=== PATIENT | female | born 1935 | race Caucasian/White ===

== ENCOUNTER 2023-07-05 21:33 | Inpatient (IN) | payer MEDICARE, SELFPAY ==
[2023-07-05] VITALS (7 sets, daily range): BP systolic 108–141; BP diastolic 53–98; PULSE 78–88; RESP 16–24; TEMP 36.8; O2SAT 94–97
--- NOTE | ~2023-07-05 | XR_ITS ---
EXAMINATION: XR chest 1V portable DATE: 07/05/2023 22:16 INDICATION: Weakness. TECHNIQUE: A single frontal view of the chest was obtained. COMPARISON: None. FINDINGS: The lung volumes are small. No pneumonia, pleural effusion, or pneumothorax. The heart size is normal. Surgical clips in the right upper quadrant are likely from cholecystectomy. IMPRESSION: 1. Small lung volumes. Reviewed, dictated and finalized at location E. IMPRESSION: 1. Small lung volumes.
--- NOTE | ~2023-07-05 | XR_ITS ---
EXAMINATION: XR ERCP DATE: 07/08/2023 16:13 INDICATION: Choledocholithiasis. TECHNIQUE: 2 spot fluoroscopic images of the right upper quadrant were obtained during endoscopic ret rograde cholangiopancreatography (ERCP). Fluoroscopy exposure time was 119 seconds. COMPARISON: CT abdomen and pelvis 07/06/23 FINDINGS: The endoscope is in the second portion of the duodenum. There is contrast opacification of the common duct, which is dilated. There is a stone in the common duct. IMPRESSION: 1. Choledocholithiasis. Please refer to the ERCP procedure note for additional details. Reviewed, dictated and finalized at location A.
--- NOTE | ~2023-07-05 | CT_ITS ---
EXAMINATION: CT abdomen pelvis w con DATE: 07/06/2023 00:21 INDICATION: Transaminitis. Lethargy. TECHNIQUE: Computed tomography (CT) of the abdomen and pelvis was performed with 100 mL Omnipaque 350 intravenous contrast. Automated exposure control and iterative reconstruction technique were employe d. The dose-length product was 1181.45 mGy-cm. COMPARISON: None. FINDINGS: The visualized portions of the lung bases demonstrate mild atelectasis and mild chronic int erstitial lung disease. No pleural effusion. The heart size is normal. No pericardial effusion. There is a small sliding hiatal hernia. There is moderate intrahepatic biliary duct dilatation. The common duct is dilated to 16 mm. There are stones in the common duct measuring up to 7 mm. There are change s of cholecystectomy. The spleen, pancreas, and adrenal glands are normal. There are cysts in the kid neys measuring up to 2.5 cm on the left. There is diverticulosis of the colon without evidence of div erticulitis. The appendix is normal. There are no pathologically enlarged lymph nodes. There is no fr ee intraperitoneal fluid. There is a right inguinal hernia containing fat. There is moderate thoracic and lumbar spondylosis. IMPRESSION: 1. Choledocholithiasis with moderate intrahepatic and extrahepatic biliary duct dilatation. Reviewed, dictated and finalized at location A.
--- NOTE | ~2023-07-05 | CT_ITS ---
EXAMINATION: CT brain wo con DATE: 07/05/2023 22:35 INDICATION: Altered mental status. TECHNIQUE: Computed tomography (CT) of the head was performed without intravenous contrast. The mA wa s adjusted according to patient size. Iterative reconstruction technique was employed. The dose-lengt h product was 605.33 mGy-cm. COMPARISON: None FINDINGS: There are scattered areas of low attenuation in the cerebral white matter. There is no intr acranial hemorrhage, acute infarction, or abnormal intracranial mass lesion. The ventricles are tara l in size. There is mild mucosal thickening in the paranasal sinuses. There are likely changes of ocu lar lens replacement surgeries. The mastoid air cells are normal. IMPRESSION: 1. Moderate nonspecific cerebral white matter disease, which likely represents chronic small vessel i schemic disease. Reviewed, dictated and finalized at location E. IMPRESSION: 1. Moderate nonspecific cerebral white matter disease, which likely represents chronic small vessel ischemic disease.
--- NOTE | 2023-07-05 21:39 | ECG_ITS ---
SEE SCANNED COPY FOR CONFIRMED REPORT MTDD
--- NOTE | 2023-07-05 22:22 | ED.GENADULT ---
HPI - General Adult General Chief complaint: Weakness Stated complaint: increased weakness x 24 hours Time Seen by Provider: 07/05/23 22:07 History of Present Illness HPI narrative: 88-year-old female present to the emergency department for evaluation for increased lethargy. Patient has dementia and is nonverbal at baseline. [facility] felt the patient was less active than normal and slept in. Patient is alert and at her baseline upon arrival to the emergency department. Related Data Home Medications Medication Instructions Recorded Confirmed B12 1,000 mcg PO DAILY 07/06/23 07/06/23 Vitamin D3 1,000 units PO DAILY 07/06/23 07/06/23 atorvastatin 40 mg tablet 40 mg PO DAILY 07/06/23 07/06/23 coQ10 (ubiquinol) 200 mg PO BID 07/06/23 07/06/23 hydroxychloroquine 200 mg tablet 200 mg PO BID 07/06/23 07/06/23 pantoprazole 40 mg tablet,delayed 40 mg PO BID 07/06/23 07/06/23 release quetiapine 25 mg PO DAILY 07/06/23 07/06/23 Allergies Allergy/AdvReac Type Severity Reaction Status Date / Time No Known Allergies Allergy Verified 07/06/23 05:48 Review of Systems Review of Systems: All systems reviewed & are unremarkable except as noted in HPI and below PMFSH Past Medical History Medical History Abdominal pain Altered mental status Dementia Elevated liver enzymes Leukocytosis Surgical History Surgical History Status post cholecystectomy Family History Family History Other Unknown family medical history Social History Social History Smoking status: Unknown if ever smoked Alcohol intake: unknown Substance use: unknown Spiritual care concerns: No Exam Narrative: APPEARANCE: Well-appearing, non for HEAD: normocephalic, atraumatic. EYES: PERRLA/EOMI, conjunctivae clear. NOSE: Normal no drainage EARS:TMS clear with good light reflex. THROAT: Pharynx clear, no exudate. NECK: Supple. No adenopathy, no masses. RESPIRATORY: Airway patent, respirations nonlabored. Clear to auscultation bilaterally, no rales, rhonchi, wheezing. CARDIOVASCULAR: Regular rate and rhythm without murmurs rubs or gallops. ABDOMINAL: Soft, nontender, nondistended, normal bowel sounds MUSCULOSKELETAL: Moves all extremities. Strength/ROM intact, No edema, No calf tenderness. NEURO: Alert. Cranial nerves II through XII intact. Grossly intact SKIN: Warm, dry. Normal Color Course Vital Signs Vital signs: Vital Signs Temperature 98.2 F 07/05/23 21:33 Pulse Rate 85 07/05/23 21:33 Respiratory Rate 19 07/05/23 21:33 Blood Pressure 141/53 H 07/05/23 21:33 Pulse Oximetry 94 07/05/23 21:33 Oxygen Delivery Room Air 07/05/23 21:33 Temperature 97.7 F 07/09/23 08:45 Pulse Rate 66 07/09/23 08:45 Respiratory Rate 16 07/09/23 08:45 Blood Pressure 130/50 L 07/09/23 08:45 Pulse Oximetry 99 07/09/23 08:45 Oxygen Delivery Room Air 07/09/23 09:50 Oxygen Flow Rate 10 07/08/23 16:16 Fraction of Inspired Oxygen 21 07/08/23 20:30 Medical Decision Making [facility] Narrative Medical decision making narrative: 88-year-old female presents emergency department for evaluation for altered mental status and increased lethargy. Patient is alert at her baseline in the emergency department. Patient is afebrile but does have a leukocytosis of 11.3 with a stable hemoglobin of 13.2. Patient had elevation in T bili AST ALT and alk-phos. No previous labs to compare to. CT scan was ordered and does show biliary dilation with common bile duct measuring up to 1.6 cm with distal CBD/ampullary likely stone measuring 7-8 mm. GI was consulted and they were comfortable with the plan to consult and patient will have an MRCP ordered. Vital Signs Vital Signs: Vital Signs
[2023-07-05 22:29] LABS: Basophils Absolute Auto 0.1 K/mm3 (0.0-0.1); Basophils Percent Auto 0.4 % (0.2-1.2); Eosinophils Percent Auto 0.4 % (0-4.4); Hematocrit 40.7 % (37.0-47.0); Hemoglobin 13.2 g/dL (12.0-15.0); Immature Granulocyte Absolute 0.06 K/mm3 (0.00-0.031); Immature Granulocyte Percent A 0.5 % (0-0.5); Lymphocytes Absolute Auto 0.63 K/mm3 (0.9-3.2); Lymphocytes Percent Auto 5.6 % (18.3-44.2); Mean Corpuscular HGB Conc 32.4 g/dl (32-36); Mean Corpuscular Hemoglobin 29.7 pg (26-34); Mean Corpuscular Volume 91.5 fl (80-100); Mean Platelet Volume 10.4 fl (7.4-10.4); Monocytes Absolute Auto 1.1 K/mm3 (0.1-0.6); Monocytes Percent Auto 9.3 % (2.6-8.5); Neutrophils Absolute Auto 9.4 K/mm3 (1.3-6.7); Neutrophils Percent Auto 83.8 % (45.5-73.1); Platelet Count Result 186 k/mm3 (150-375); Red Blood Count 4.45 M/mm3 (4.2-5.4); Red Cell Distribution Width 14.1 % (11.5-14.5); White Blood Count 11.3 K/mm3 (4.5-10.0)
[2023-07-05 22:40] LABS: Alanine Aminotransferase 515 U/L (6-35); Albumin Level 4.5 g/dL (3.5-5.1); Alkaline Phosphatase 272 U/L (38-126); Anion Gap 8 mmol/L (4-12); Aspartate Amino Transferase 414 U/L (14-36); Bilirubin,Total 1.5 mg/dL (0.2-1.3); Blood Urea Nitrogen 15 mg/dL (7-17); Calcium 8.7 mg/dL (8.4-10.2); Carbon Dioxide 21 mmol/L (22-30); Chloride 106 mmol/L (98-107); Estimated CRCL calculation 48 ml/min; Estimated Glomerular Filt Rate > 60; Glucose 172 mg/dL (65-110); Lactic Acid Reflex 1.1 mmol/L (0.7-2.0); Potassium 3.8 mmol/L (3.4-5.0); Sodium 135 mmol/L (137-145)
[2023-07-05 22:48] LABS: INR 1.2; Partial Thromboplastin Time 35.6 Seconds (22.3-36.8); Prothrombin Time 15.8 Seconds (11.1-14.7)
--- NOTE | 2023-07-05 23:04 | PC.NURSE ---
patient care and report given to ELAINA Espinosa. all questions answered.
[2023-07-05 23:05] LABS: Influenza A QL RT-PCR Negative (Negative); Influenza B QL RT-PCR Negative (Negative); RSV RNA, RT-PCR Negative (Negative); SARS-CoV-2 RNA PCR Negative (Negative)
--- NOTE | 2023-07-05 23:08 | PC.NURSE ---
this rn assumed care of patient. this rn took patient report from ELAINA Woods.
[2023-07-05 23:46] LABS: Appearance Urine Cloudy (Clear); Bacteria Urine None Seen /hpf; Bilirubin Urine 1+ (Negative); Blood Urine Negative (Negative); Color Urine Dark Yellow (Yellow); Glucose Urine UA Negative (Negative); Ketones Urine Negative (Negative); Leukocyte Esterase Ur 1+ LEU/UL (Negative); Need Manual Microscopic Reviewed; Nitrate Urine Negative (Negative); Non Pathogenic Casts 0-2; Protein Urine 1+ mg/dL (Negative); Specific Grav Ur 1.026 (1.001-1.035); Squamous Epithelial Cell Urine Occasional /hpf (Few)
[2023-07-05 23:51] LABS: Add Urine Microscopic? YES
[2023-07-06] VITALS (13 sets, daily range): BP systolic 109–154; BP diastolic 58–82; PULSE 62–73; RESP 16–20; TEMP 36.1–37.2; O2SAT 92–100; BMI 35.3
--- NOTE | 2023-07-06 00:56 | PC.NURSE ---
pt refusing vital equipment at this time. pt tried to hit/slap/ spit on this rn when attempting to reapply vital equipment.
[2023-07-06] MEDS: PIPERACILLN/TAZ 3.375GM/NS50ML 3.375 GM/50 ML BAG IVPB ×3 (05:06→17:02)
--- NOTE | 2023-07-06 05:12 | PC.NURSE ---
patient began to get combative upon reinitiation of iv. pt started to kick, spit, and hit staff members. Pt continually stating, I want to go home, you can't stop me. I am going to go see my mom . This rn attempted to reorient patient to place. pt began to try to crawl out of bed. pt then started to pull on lines and yell at staff.
--- NOTE | 2023-07-06 05:50 | ADMGEN ---
This patient, Shelly Johnston, was admitted to Medical Room 244-. Patient/family oriented to hospital policies and general routines including ID bracelet, bed and alarms, visiting hours, pain management, procedures, bathroom and other care routines, personal items, smoking policy, room service/diet, and visiting hours. Information on how to activate the Rapid Response Team has been discussed. Patient/Family are encouraged to report perceived risks to care and to ask questions if they do not understand what they are told or what they should do.
[2023-07-06] MEDS: SODIUM CHLORIDE 0.9% IV 1,000 ML 125 ML IV CONT ×3 (06:00→22:35)
--- NOTE | 2023-07-06 06:25 | PC.NURSE ---
PT TRANSFERRED TO FLOOR FROM ED ON STRETCHER AND IMMEDIATELY WHEN COMING OFF THE ELEVATOR PT WAS SCREAMING AND THRASHING. PT CURSING, HITTING, KICKING, AND SPITTING AT ANYONE WHO COMES NEAR HER. IT UNCOOPERATIVE AND WILL NOT ALLOW ME TO PHYSICAL ASSESS HER. PT HAS PULLED OUT MULTIPLE IVS. STAFF WAS ABLE TO SAVE CURRENT LINE AND IT WAS WRAPPED IN [place] AND [place]. CONTACTED HOSPITALIST FOR MITT ORDER. ORDER WAS PLACED WITH A PO DOSE OF SEROQUEL. PT REFUSES AND MEDICATIONS AND SPITS AT YOU ANYTIME YOU ARE NEAR. MULTIPLE STAFF HAVE TRIED TO CALM THE PT WITH NO SUCCESS.
--- NOTE | 2023-07-06 06:29 | PC.NURSE ---
Patient is not lethargic nor nonverbal. She has been verbally aggressive with staff, spitting, scratching, and pulling out IVs.
[2023-07-06] MEDS: QUEtiapine FUMARATE 25 MG TABLET PO (06:33)
--- NOTE | 2023-07-06 06:55 | PM.IMHP ---
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 On assessment patient is lying in bed with daughter/POA at bedside. Patient becomes agitated with exam and flails her arms to shoo me away. She then begins to speak in ivorian. Per daughter this is common when patient is under going something she does not like. Daughter was able to ask patient questions such as do you have any pain, feel short of breath, weakness, nauseous, ect. All of these questions the patient responded no to. All of history was obtained from daughter. Per daughter patient is typically AOx1 at baseline, walks independently and is able to hold small conversations. She notes that patient became weak and less responsive yesterday with noticeable difficulties walking per care home staff. Discussed labs and imaging with daughter. She states understanding. GI evaluated patient who plans to perform an ERCP on Saturday. Daughter is agreeable to current treatment plan. All questions were answered at time of assessment. Home medications restarted as appropriate. Spoke with ELAINA Burnett at [facility]. She states that patient is typically AOx1 (self), walks independently, and is able to hold small conversations about how she is feeling, if she wants to do activities, or if she is in pain. She states that yesterday patient was noticeably less active/communicative which prompted them to send her to the ED. Of note this patient is known to speak fluent Japanese at times. ED workup: CBC with leukocytosis of 11.3. Chemistry with mild hyponatremia 135, glucose 172. Elevated liver panel of AST 414, ALT 515, Alk phos 272, tot bili 1.5. UA with cloudy appearance, 1+ protein, 1+ bili, 1+ leukocyte, RBC 6-10, WBC 6-10. Viral panel negative. Chest XR with small lung volumes. Head CT revealed moderate nonspecific cerebral white matter disease, which likely represents chronic small vessel ischemic disease. Abdomen/pelvis CT: Choledocholithiasis with moderate intrahepatic and extrahepatic biliary duct dilatation. Started on NS and Zosyn. GI consulted. Review of Systems Review of Systems: ROS unobtainable: Yes unobtainable due to mental status [facility] Past Medical History Medical History Abdominal pain Altered mental status Dementia Elevated liver enzymes Leukocytosis Surgical History Surgical History Status post cholecystectomy Family History Family History Other Unknown family medical history Social History Social History Smoking status: Unknown if ever smoked Alcohol intake: unknown Substance use: unknown Spiritual care concerns: No Meds Home Medications and Allergies Home Medications Medication Instructions Recorded Confirmed Type B12 1,000 mcg PO DAILY 07/06/23 07/06/23 History Vitamin D3 1,000 units PO DAILY 07/06/23 07/06/23 History atorvastatin 40 mg tablet 40 mg PO DAILY 07/06/23 07/06/23 History coQ10 (ubiquinol) 200 mg PO BID 07/06/23 07/06/23 History hydroxychloroquine 200 mg tablet 200 mg PO BID 07/06/23 07/06/23 History pantoprazole 40 mg tablet,delayed 40 mg PO BID 07/06/23 07/06/23 History release quetiapine 25 mg PO DAILY 07/06/23 07/06/23 History Allergies Allergy/AdvReac Type Severity Reaction Status Date / Time No Known Allergies Allergy Verified 07/06/23 05:48 Vital Signs Vital Signs - 24 hr 07/05/23 21:33 07/05/23 21:44
--- NOTE | 2023-07-06 14:17 | WPDGICN ---
Assessment and Plan Assessment and plan (1) Choledocholithiasis: Code(s): K80.50 - Calculus of bile duct without cholangitis or cholecystitis without obstruction Status: Acute Assessment and Plan: patient will need ERCP in order to remove stones this was explained in detail to daughter and she is agreeable we can do it on Saturday, in the meantime is ok to give liquid diet (2) Abdominal pain: Code(s): R10.9 - Unspecified abdominal pain Status: Acute (3) Elevated liver enzymes: Code(s): R74.8 - Abnormal levels of other serum enzymes Status: Acute Assessment and Plan: probably from stone in bile duct monitor (4) Leukocytosis: Code(s): D72.829 - Elevated white blood cell count, unspecified Status: Acute Assessment and Plan: on abx monitor (5) Dementia: Code(s): F03.90 - Unspecified dementia, unspecified severity, without behavioral disturbance, psychotic disturbance, mood disturbance, and anxiety Status: Acute (6) Altered mental status: Code(s): R41.82 - Altered mental status, unspecified Status: Acute GI Consult Note Consult date/time: 07/06/23 14:17 Reason for consult: abdominal pain, choledocholithiasis, elevated lft HPI: Shelly Johnston is a 88 year old female with past medical history of CVA last year then had UGIB and she has been staying since early this year at [facility]. She also has rheumatoid arthritis, hypothyroidism and many years ago cholecystectomy. History is obtained from records and daughter who is at bedside. She was sent here after altered mental status and lethargy (more than usual), at baseline she talks typically AOx1 (self), walks independently, and is able to hold small conversations about how she is feeling. Also was report about abdominal pain. ED workup: CBC with leukocytosis of 11.3. glucose 172. AST 414, ALT 515, Alk phos 272, tot bili 1.5. UA with cloudy appearance, 1+ protein, 1+ bili, 1+ leukocyte, RBC 6-10, WBC 6-10. Viral panel negative. Chest XR with small lung volumes. Head CT revealed moderate nonspecific cerebral white matter disease, which likely represents chronic small vessel ischemic disease. Abdomen/pelvis CT: Choledocholithiasis with moderate intrahepatic and extrahepatic biliary duct dilatation, started on abx. No pancreatitis. Review of Systems Constitutional: Constitutional: Denies chills Eyes: Eyes: Denies blurry vision ENT: Reports Normal hearing present Cardiovascular: Cardiovascular: Denies chest pain Respiratory: Respiratory: Denies cough Gastrointestinal: Gastrointestinal: Reports abdominal pain Musculoskeletal: Musculoskeletal: Denies arthralgias Integumentary/Breasts: Skin/Breast: Denies rash Neurologic: Reports confusion Psychiatric: Psychiatric: Reports confusion [facility] Past Medical History Medical History (Updated 07/06/23 @ 14:24 by Kendrick Campo MD) Abdominal pain Altered mental status Dementia Elevated liver enzymes Leukocytosis Family History Family History (Updated 07/06/23 @ 06:03 by Sb Sheldon RN) Other Unknown family medical history Social History Social History Smoking status: Unknown if ever smoked Alcohol intake: unknown Substance use: unknown Spiritual care concerns: No Meds Home Medications and Allergies Home Medications Medication Instructions Recorded Confirmed Type B12 1,000 mcg PO DAILY 07/06/23 07/06/23 History Vitamin D3 1,000 units PO DAILY 07/06/23 07/06/23 History atorvastatin 40 mg tablet 40 mg PO DAILY 07/06/23 07/06/23 History coQ10 (ubiquinol) 200 mg PO BID 07/06/23 07/06/23 History hydroxychloroquine 200 mg tablet 200 mg PO BID 07/06/23 07/06/23 History pantoprazole 40 mg tablet,delayed 40 mg PO BID 07/06/23 07/06/23 History release quetiapine 25 mg PO DAILY 07/06/23 07/06/23 History Allergies Allergy/AdvReac Type Severity Reaction Stat
[2023-07-06] MEDS: HYDROXYCHLOROQUINE SULFATE 200 MG TABLET PO (17:02)
[2023-07-07] MEDS: PIPERACILLN/TAZ 3.375GM/NS50ML 3.375 GM/50 ML BAG IVPB ×4 (00:07→17:05)
[2023-07-07 04:03] VITALS: BP 130/102; PULSE 81; RESP 18; TEMP 36.4; O2SAT 95
[2023-07-07 05:16] LABS: Basophils Percent Auto 0.7 % (0.2-1.2); Eosinophils Absolute Auto 0.2 K/mm3 (0-0.3); Eosinophils Percent Auto 3.3 % (0-4.4); Hematocrit 37.6 % (37.0-47.0); Hemoglobin 11.9 g/dL (12.0-15.0); Immature Granulocyte Absolute 0.01 K/mm3 (0.00-0.031); Immature Granulocyte Percent A 0.2 % (0-0.5); Lymphocytes Absolute Auto 1.19 K/mm3 (0.9-3.2); Lymphocytes Percent Auto 20.6 % (18.3-44.2); Mean Corpuscular HGB Conc 31.6 g/dl (32-36); Mean Corpuscular Volume 94.7 fl (80-100); Mean Platelet Volume 10.8 fl (7.4-10.4); Monocytes Absolute Auto 0.7 K/mm3 (0.1-0.6); Monocytes Percent Auto 11.8 % (2.6-8.5); Neutrophils Absolute Auto 3.7 K/mm3 (1.3-6.7); Neutrophils Percent Auto 63.4 % (45.5-73.1); Platelet Count Result 156 k/mm3 (150-375); Red Blood Count 3.97 M/mm3 (4.2-5.4); Red Cell Distribution Width 13.7 % (11.5-14.5); White Blood Count 5.8 K/mm3 (4.5-10.0)
[2023-07-07 06:24] LABS: Alanine Aminotransferase 240 U/L (6-35); Albumin Level 3.7 g/dL (3.5-5.1); Alkaline Phosphatase 203 U/L (38-126); Anion Gap 7 mmol/L (4-12); Aspartate Amino Transferase 78 U/L (14-36); Bilirubin,Total 0.9 mg/dL (0.2-1.3); Blood Urea Nitrogen 11 mg/dL (7-17); Calcium 8.6 mg/dL (8.4-10.2); Carbon Dioxide 22 mmol/L (22-30); Chloride 110 mmol/L (98-107); Estimated CRCL calculation 48 ml/min; Estimated Glomerular Filt Rate > 60; Glucose 123 mg/dL (65-110); Potassium 3.7 mmol/L (3.4-5.0); Sodium 139 mmol/L (137-145)
[2023-07-07 06:25] LABS: Hepatitis B Surface Antigen Negative (Negative)
[2023-07-07 06:31] LABS: HAV RESULT Negative (Negative); Hepatitis B Core IgM Result Negative (Negative)
[2023-07-07 06:42] LABS: Hepatitis C Virus Antibody Negative (Negative)
--- NOTE | 2023-07-07 06:49 | PM.IMPN ---
Progress Note: A&P Assessment and Plan (1) Choledocholithiasis: Code(s): K80.50 - Calculus of bile duct without cholangitis or cholecystitis without obstruction Status: Acute Assessment and Plan: History of cholecystectomy. Tot bili 1.5, AST 414, ALT 515, Alk phos 272 on admission. Abdomen/Pelvis CT 07/05: Choledocholithiasis with moderate intrahepatic and extrahepatic biliary duct dilatation. Abdominal US ordered but patient uncooperative for exam to be obtained. - GI consulted. Plan for ERCP Saturday in order to remove stones - Liquid diet - Labs remain elevated but improving. Tot bili 0.9, AST 78, ALT 240, Alk phos 203. - Continue Zosyn (2) Leukocytosis: Code(s): D72.829 - Elevated white blood cell count, unspecified Status: Acute Assessment and Plan: CBC with leukocytosis 11.3 on admission. Patient remains afebrile. Likely due choledocholithiasis. Blood cultures pending. Lactic acid WNL. - Continue Zosyn - Monitor labs. WBC 5.8 on am labs. (3) Elevated liver enzymes: Code(s): R74.8 - Abnormal levels of other serum enzymes Status: Acute Assessment and Plan: Tot bili 1.5, AST 414, ALT 515, Alk phos 272 on admission. Likely secondary to choledocholithiasis. - Monitor with am labs. - Remain elevated but improving: Tot bili 0.9, AST 78, ALT 240, Alk phos 203. - Hepatitis panel negative - See plan above (4) CVA (cerebral vascular accident): Code(s): I63.9 - Cerebral infarction, unspecified Status: Acute Assessment and Plan: Per daughter, CVA without noted deficits in 2022. Started on atorvastatin at that time. She states patient was initially started on ASA but had a GI bleed in 2022 which lead to its discontinuation. Denies other anticoagulant use. - Atorvastatin 40 mg daily - Monitor (5) Dementia: Code(s): F03.90 - Unspecified dementia, unspecified severity, without behavioral disturbance, psychotic disturbance, mood disturbance, and anxiety Status: Acute Assessment and Plan: AOx1 (self) at baseline. Per daughter patient is currently at baseline. (6) Hypothyroidism: Code(s): E03.9 - Hypothyroidism, unspecified Status: Acute Assessment and Plan: Per daughter patient has history of hypothyroidism. Not on any home medications. 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 Abdomen/pelvis CT revealed choledocholithiasis with moderate intrahepatic and extrahepatic biliary duct dilatation. Patient is pleasant sitting up in bed with daughter and sitter at bedside. She was able to ambulate with assistance to the commode. She is much more alert today and cooperative throughout assessment. She remains AOx1 but is answering questions appropriately. Patient is denying abdominal pain, nausea/vomiting and changes in bowel. Discussed the current treatment plan and the lab results with patient and her daughter. Daughter states understanding. Patient also denies chest pain, shortness of breath, palpitations, and bladder changes. Review of Systems Review of Systems: All systems reviewed & are unremarkable except as noted in HPI and below Exam Narrative: AF HR 81 RR 18 SpO2 95 BP 130/102 General: female in no acute respiratory distress who is nontoxic appearing,sitting up in bed with sitter at bedside HEENT: Normocephalic. Atraumatic. Extraocular movement intact. Sclera clear and anicteric. No facial asymmetry. Chest: Lungs are clear to auscultation bilaterally. No wheezes or crackles. CV: Heart was regula
[2023-07-07] MEDS: SODIUM CHLORIDE 0.9% IV 1,000 ML 125 ML IV CONT ×2 (08:00→17:04)
[2023-07-07 09:25] LABS: T4 Thyroxine 5.75 ug/dL (5.53-11.0)
[2023-07-07] MEDS: ENOXAPARIN 40 MG/0.4 ML SYRINGE SUB-Q (10:02)
[2023-07-07 10:35] VITALS: O2SAT 98
--- NOTE | 2023-07-07 12:33 | WPDGIPROGNO ---
Progress Note: A&P Assessment and Plan (1) Choledocholithiasis: Code(s): K80.50 - Calculus of bile duct without cholangitis or cholecystitis without obstruction Status: Acute Assessment and Plan: ercp tomorrow to remove stones family is agreeable (2) Elevated liver enzymes: Code(s): R74.8 - Abnormal levels of other serum enzymes Status: Acute Assessment and Plan: slowly trending down (3) Dementia: Code(s): F03.90 - Unspecified dementia, unspecified severity, without behavioral disturbance, psychotic disturbance, mood disturbance, and anxiety Status: Acute Assessment and Plan: confused at baseline sitter at bedside (4) Altered mental status: Code(s): R41.82 - Altered mental status, unspecified Status: Acute Subjective Date/time seen: 07/07/23 12:33 Interval history: she is confused, she is using portable potty daughter at bedside Review of Systems Review of Systems: All systems reviewed & are unremarkable except as noted in HPI and below Exam Const: General: comfortable and no acute distress Other: pleasantly confused HENMT: Face/Nose/Sinus: Normal nares present Eyes: General: appearance normal, both eyes and all related structures Neck: Neck: supple Resp: Auscultation: clear to auscultation bilaterally Cardio: Rate: regular rate Rhythm: regular rhythm GI: Inspection: non-distended GI Palp: Yes Soft to palpation and No Guarding due to palpation present (GI) Auscultation: normal bowel sounds Other: no more pain today Skin: General skin exam: normal color Neuro: Speech: normal speech Motor exam (neuro): 5/5 motor strength present throughout Other: she is awake and alert but gets confused- near baseline per daughter Extrem: General: normal to inspection Psych: Affect: Anxious affect present Objective Data Vital Signs Vital Signs: Vital Signs - 24 hr 07/06/23 15:18 07/06/23 20:16 07/07/23 04:03 Temperature 96.9 F L 98.9 F 97.5 F L Pulse Rate 71 68 81 Respiratory Rate 16 20 18 Blood Pressure 154/66 H 148/58 H 130/102 H Pulse Oximetry 99 92 95 Oxygen Delivery 07/07/23 10:35 07/07/23 10:30 Temperature Pulse Rate Respiratory Rate Blood Pressure Pulse Oximetry 98 Oxygen Delivery Room Air Room Air Intake/Output Intake/Output: Intake & Output 07/04/23 07/05/23 07/06/23 07/07/23 23:59 23:59 23:59 23:59 Intake Total 2240 1390 Output Total 1900 Balance 340 1390 Meds/Results Medications: Active Medications Generic Name Dose Route Start Last Admin Trade Name Freq PRN Reason Stop Dose Admin Atorvastatin Calcium 40 mg 07/07/23 09:00 Atorvastatin 40 Mg Tablet PO DAILY [facility] Cyanocobalamin 1,000 mcg 07/07/23 09:00 Cyanocobalamin 1,000 Mcg Tablet PO QAM [facility] Enoxaparin Sodium 40 mg 07/07/23 09:00 07/07/23 10:02 Enoxaparin 40 Mg/0.4 Ml Syringe SUB-Q 40 mg DAILY HANG Administration Hydroxychloroquine Sulfate 200 mg 07/06/23 11:00 07/06/23 17:02 Hydroxychloroquine Sulfate 200 Mg Tablet PO 200 mg BID HANG Administration Sodium Chloride 1,000 mls @ 125 mls/hr 07/06/23 05:05 07/07/23 08:00 Normal Saline Iv IV CONT 125 mls/hr .Q8H HANG Administration Piperacillin/Tazobactam/Dextrose 3.375 gm in 50 mls @ 100 mls/hr 07/06/23 11:00 07/07/23 10:32 Zosyn 3.375 Gm/Ns 50 Ml IVPB Infused Q6H HANG Infusion Pantoprazole Sodium 40 mg 07/06/23 17:00 07/06/23 17:00 Pantoprazole 40 Mg Tablet PO Not Given BID HANG Quetiapine Fumarate 25 mg 07/07/23 21:00 Quetiapine Fumarate 25 Mg Tablet PO QHS [facility] Radiology Results: ITS Impressions Chest X-Ray 07/05/23 22:18 IMPRESSION: 1. Small lung volumes. Head CT 07/05/23 22:37 IMPRESSION: 1. Moderate nonspecific cerebral white matter disease, which likely represents chronic small vessel ischemic disease. Abdomen/Pelvis CT 07/05
[2023-07-07] MEDS: CYANOCOBALAMIN 1,000 MCG TABLET 1000 MCG PO (14:09)
[2023-07-07] MEDS: ATORVASTATIN 40 MG TABLET PO (14:09)
[2023-07-07 14:51] VITALS: BP 148/58; PULSE 62; RESP 20; TEMP 36.3; O2SAT 98
[2023-07-07] MEDS: HYDROXYCHLOROQUINE SULFATE 200 MG TABLET PO (17:04)
[2023-07-07] MEDS: PANTOPRAZOLE 40 MG TABLET PO (17:04)
[2023-07-07] MEDS: QUEtiapine FUMARATE 25 MG TABLET PO (20:30)
[2023-07-07 21:59] VITALS: BP 142/55; PULSE 62; RESP 12; TEMP 36.4; O2SAT 97
[2023-07-08] VITALS (12 sets, daily range): BP systolic 159–174; BP diastolic 62–81; PULSE 55–71; RESP 18–26; TEMP 36.1–36.6; O2SAT 65–100
[2023-07-08] MEDS: PIPERACILLN/TAZ 3.375GM/NS50ML 3.375 GM/50 ML BAG IVPB ×5 (00:38→23:20)
[2023-07-08] MEDS: SODIUM CHLORIDE 0.9% IV 1,000 ML 125 ML IV CONT ×4 (01:57→23:11)
[2023-07-08 05:55] LABS: Basophils Percent Auto 0.8 % (0.2-1.2); Eosinophils Absolute Auto 0.2 K/mm3 (0-0.3); Eosinophils Percent Auto 3.8 % (0-4.4); Hematocrit 36.3 % (37.0-47.0); Hemoglobin 11.6 g/dL (12.0-15.0); Immature Granulocyte Absolute 0.02 K/mm3 (0.00-0.031); Immature Granulocyte Percent A 0.4 % (0-0.5); Lymphocytes Absolute Auto 1.57 K/mm3 (0.9-3.2); Lymphocytes Percent Auto 29.8 % (18.3-44.2); Mean Corpuscular Hemoglobin 30.1 pg (26-34); Mean Platelet Volume 11.2 fl (7.4-10.4); Monocytes Absolute Auto 0.7 K/mm3 (0.1-0.6); Monocytes Percent Auto 13.1 % (2.6-8.5); Neutrophils Absolute Auto 2.8 K/mm3 (1.3-6.7); Neutrophils Percent Auto 52.1 % (45.5-73.1); Platelet Count Result 163 k/mm3 (150-375); Red Blood Count 3.86 M/mm3 (4.2-5.4); Red Cell Distribution Width 13.6 % (11.5-14.5); White Blood Count 5.3 K/mm3 (4.5-10.0)
[2023-07-08 06:14] LABS: Alanine Aminotransferase 146 U/L (6-35); Albumin Level 3.5 g/dL (3.5-5.1); Alkaline Phosphatase 145 U/L (38-126); Anion Gap 5 mmol/L (4-12); Aspartate Amino Transferase 38 U/L (14-36); Bilirubin,Total 0.7 mg/dL (0.2-1.3); Blood Urea Nitrogen 10 mg/dL (7-17); Calcium 8.5 mg/dL (8.4-10.2); Carbon Dioxide 24 mmol/L (22-30); Chloride 111 mmol/L (98-107); Estimated CRCL calculation 48 ml/min; Estimated Glomerular Filt Rate > 60; Glucose 119 mg/dL (65-110); Potassium 3.9 mmol/L (3.4-5.0); Sodium 140 mmol/L (137-145)
--- NOTE | 2023-07-08 06:58 | PM.IMPN ---
Progress Note: A&P Assessment and Plan (1) Choledocholithiasis: Code(s): K80.50 - Calculus of bile duct without cholangitis or cholecystitis without obstruction Status: Acute Assessment and Plan: History of cholecystectomy. Tot bili 1.5, AST 414, ALT 515, Alk phos 272 on admission. Abdomen/Pelvis CT 07/05: Choledocholithiasis with moderate intrahepatic and extrahepatic biliary duct dilatation. Abdominal US ordered but patient uncooperative for exam to be obtained. - GI consulted. Plan for ERCP today in order to remove stones - Liquid diet - Labs remain elevated but improving. Tot bili 0.9, AST 78, ALT 240, Alk phos 203. - Continue Zosyn (2) Leukocytosis: Code(s): D72.829 - Elevated white blood cell count, unspecified Status: Acute Assessment and Plan: CBC with leukocytosis 11.3 on admission. Patient remains afebrile. Likely due choledocholithiasis. Blood cultures pending. Lactic acid WNL. - Continue Zosyn - Monitor labs. WBC 5.3 on am labs. (3) Elevated liver enzymes: Code(s): R74.8 - Abnormal levels of other serum enzymes Status: Acute Assessment and Plan: Tot bili 1.5, AST 414, ALT 515, Alk phos 272 on admission. Likely secondary to choledocholithiasis. - Monitor with am labs. - Remain elevated but improving: Tot bili 0.7, AST 38, ALT 146, Alk phos 145. - Hepatitis panel negative - See plan above (4) CVA (cerebral vascular accident): Code(s): I63.9 - Cerebral infarction, unspecified Status: Acute Assessment and Plan: Per daughter, CVA without noted deficits in 2022. Started on atorvastatin at that time. She states patient was initially started on ASA but had a GI bleed in 2022 which lead to its discontinuation. Denies other anticoagulant use. - Atorvastatin 40 mg daily - Monitor (5) Dementia: Code(s): F03.90 - Unspecified dementia, unspecified severity, without behavioral disturbance, psychotic disturbance, mood disturbance, and anxiety Status: Acute Assessment and Plan: AOx1 (self) at baseline. Per daughter patient is currently at baseline. (6) Hypothyroidism: Code(s): E03.9 - Hypothyroidism, unspecified Status: Acute Assessment and Plan: Per daughter patient has history of hypothyroidism. Not on any home medications. - TSH 6.700 - T4 5.75 - T3 pending Time Spent With Patient Time with patient: 25 - 35 minutes Subjective Date/time seen: 07/08/23 06:58 Interval history: 88 year old female with past medical history of CVA (nov 2022) without deficits, rheumatoid arthritis, GI bleed (dec 2022), hypothyroidism, and recurrent falls with surgical history of cholecystectomy presents to hospital from [facility] for altered mental status and lethargy. Abdomen/pelvis CT revealed choledocholithiasis with moderate intrahepatic and extrahepatic biliary duct dilatation. Patient is pleasant lying in bed with family at bedside. She remains AOx1. Plan is for patient to undergo an ERCP today with GI. She denies abdominal pain, nausea/vomiting and changes in bowel. Discussed current treatment plan with daughter who states understanding. Patient also denies chest pain, shortness of breath, and changes in urination. She remains on zosyn for abdominal coverage and her WBC is WNL. Her LFTs continue to improve. Review of Systems Review of Systems: All systems reviewed & are unremarkable except as noted in HPI and below Exam Narrative: AF HR 58 RR 18 SpO2 100 BP 174/81 General: female in no acute respiratory distress who is nontoxic appearing,sitting up in bed with sitter at bedside HEENT: Normocephalic. Atraumatic. Extraocular movement intact. Sclera clear and anicteric. No facial asymmetry. Chest: Lungs are clear to auscultation bilaterally. No wheezes or crackles. CV: Heart was regular rate and rhythm. S1-S2. No murmurs, gallops, or rubs. Abd: Abdomen was soft. Nontender. Nondistende
--- NOTE | 2023-07-08 09:06 | PC.NURSE ---
Emergency Medical Services Coordinator spoke with Lin in GI lab patient needs to take medications with applesauce re
--- NOTE | 2023-07-08 09:08 | PC.NURSE ---
web content writer spoke with Lin DELANEY in GI lab patient requires applesauce with medications, listed AM medications, she reports will likely need to hold medications until after procedure, spoke with Mariama Fermin APRN who reprots to hold medications until after procedure.
--- NOTE | 2023-07-08 14:07 | PC.NURSE ---
To GI Lab per stretcher, Patient pulled out IV just prior to apple picker, GI lab nurse Kavita states will replace, Report given to Kavita.
[2023-07-08] MEDS: LACTATED RINGERS 1,000 ML 150 ML IV CONT (14:18)
--- NOTE | 2023-07-08 14:51 | PCOTNOTE ---
Attempted to see pt. for occupational therapy evaluation. Pt. away from room for ERCP. Nursing aware. Following
--- NOTE | 2023-07-08 15:05 | WPDANESEPPF ---
Anes - Initial Pre Proc Eval Procedure: Operation Date: 07/08/23 14:30 Proposed Procedures p Endoscopic Retro Cholangiopancreatogram - Kendrick Campo MD Date/Time: 07/08/23 15:05 Surgeon: Paige Perrin DO Pre Op Diagnosis: AMS, Biliary obstruction Patient Data Age: 88 Gender: F Height: 1.57 m Weight: 87.7 kg Last Vital Signs Temp 97 F L 07/08/23 14:13 Pulse 58 L 07/08/23 14:13 Resp 18 07/08/23 14:13 BP 174/81 H 07/08/23 14:13 Pulse Ox 100 07/08/23 14:13 O2 Del Method Room Air 07/08/23 14:13 FiO2 21 07/06/23 09:16 Allergies Allergy/AdvReac Type Severity Reaction Status Date / Time No Known Allergies Allergy Verified 07/06/23 05:48 Home Medications Medication Instructions Recorded Confirmed Type B12 1,000 mcg PO DAILY 07/06/23 07/06/23 History Vitamin D3 1,000 units PO DAILY 07/06/23 07/06/23 History atorvastatin 40 mg tablet 40 mg PO DAILY 07/06/23 07/06/23 History coQ10 (ubiquinol) 200 mg PO BID 07/06/23 07/06/23 History hydroxychloroquine 200 mg tablet 200 mg PO BID 07/06/23 07/06/23 History pantoprazole 40 mg tablet,delayed 40 mg PO BID 07/06/23 07/06/23 History release quetiapine 25 mg PO DAILY 07/06/23 07/06/23 History Laboratory Tests 07/08/23 05:15 WBC 5.3 K/mm3 (4.5-10.0) RBC 3.86 L M/mm3 (4.2-5.4) Hgb 11.6 L g/dL (12.0-15.0) Hct 36.3 L % (37.0-47.0) MCV 94.0 fl (80-100) MCH 30.1 pg (26-34) MCHC 32.0 g/dl (32-36) RDW 13.6 % (11.5-14.5) Plt Count 163 k/mm3 (150-375) MPV 11.2 H fl (7.4-10.4) Immature Gran % (Auto) 0.4 % (0-0.5) Neut % (Auto) 52.1 % (45.5-73.1) Lymph % (Auto) 29.8 % (18.3-44.2) [place] % (Auto) 13.1 H % (2.6-8.5) Eos % (Auto) 3.8 % (0-4.4) Baso % (Auto) 0.8 % (0.2-1.2) Lymph # (Auto) 1.57 K/mm3 (0.9-3.2) [place] # (Auto) 0.7 H K/mm3 (0.1-0.6) Eos # (Auto) 0.2 K/mm3 (0-0.3) Baso # (Auto) 0.0 K/mm3 (0.0-0.1) Abs Immat Gran (auto) 0.02 K/mm3 (0.00-0.031) Absolute Neuts (auto) 2.8 K/mm3 (1.3-6.7) Absolute Nucleated RBC 0.000 K/mm3 (0.0-0.012) Nucleated RBC % 0.0 % (0.0-0.2) Sodium 140 mmol/L (137-145) Potassium 3.9 mmol/L (3.4-5.0) Chloride 111 H mmol/L (98-107) Carbon Dioxide 24 mmol/L (22-30) Anion Gap 5 mmol/L (4-12) BUN 10 mg/dL (7-17) Creatinine 0.70 mg/dL (0.7-1.0) Estim Creat Clear Calc 48 ml/min Estimated GFR > 60 (59 - ) Glucose 119 H mg/dL (65-110) Calcium 8.5 mg/dL (8.4-10.2) Total Bilirubin 0.7 mg/dL (0.2-1.3) AST 38 H U/L (14-36) ALT 146 H U/L (6-35) Alkaline Phosphatase 145 H U/L (38-126) Total Protein 6.0 L g/dL (6.3-8.2) Albumin 3.5 g/dL (3.5-5.1) Patient hx anesthesia problems: none Family hx anesthesia problems: none Results Review: All pre-operative results and documents have been reviewed as part of the pre-operative evaluation. [facility] Past Medical History Medical History Abdominal pain Altered mental status Dementia Elevated liver enzymes Leukocytosis Surgical History Surgical History Status post cholecystectomy Family History Family History Other Unknown family medical history Social History Social History Smoking status: Unknown if ever smoked Alcohol intake: unknown Substance use: unknown Spiritual care concerns: No Anes - Eval Final PreProcedure Day of Procedure 07/08/23 15:05 Patient weight: obese Heart: regular rate and rhythm Lungs: clear to auscultation Airway: Mallampati scale class III Neurological: alert and oriented Last oral intake: >/= 8 hours ASA classification: IV Emergent:
[2023-07-08] MEDS: INDOMETHACIN 50 MG SUPP.RECT RECTAL (15:35)
[2023-07-08] MEDS: EPINEPHrine INJ 1 MG/10 ML SYRINGE XX (16:00)
--- NOTE | 2023-07-08 16:45 | PC.NURSE ---
Returned from OR per stretcher. Report received from Kavita DELANEY.
[2023-07-08] MEDS: ATORVASTATIN 40 MG TABLET PO (18:07)
[2023-07-08] MEDS: CYANOCOBALAMIN 1,000 MCG TABLET 1000 MCG PO (18:07)
[2023-07-08] MEDS: ENOXAPARIN 40 MG/0.4 ML SYRINGE SUB-Q (18:08)
[2023-07-08] MEDS: PANTOPRAZOLE 40 MG TABLET PO (18:09)
[2023-07-08] MEDS: HYDROXYCHLOROQUINE SULFATE 200 MG TABLET PO (18:09)
[2023-07-08] MEDS: QUEtiapine FUMARATE 25 MG TABLET PO (20:50)
[2023-07-09] MEDS: PIPERACILLN/TAZ 3.375GM/NS50ML 3.375 GM/50 ML BAG IVPB (05:08)
[2023-07-09 05:51] LABS: Basophils Percent Auto 0.5 % (0.2-1.2); Eosinophils Percent Auto 0.2 % (0-4.4); Hematocrit 35.6 % (37.0-47.0); Hemoglobin 11.5 g/dL (12.0-15.0); Immature Granulocyte Absolute 0.02 K/mm3 (0.00-0.031); Immature Granulocyte Percent A 0.3 % (0-0.5); Lymphocytes Absolute Auto 1.02 K/mm3 (0.9-3.2); Lymphocytes Percent Auto 17.5 % (18.3-44.2); Mean Corpuscular HGB Conc 32.3 g/dl (32-36); Mean Corpuscular Hemoglobin 30.1 pg (26-34); Mean Corpuscular Volume 93.2 fl (80-100); Mean Platelet Volume 11.1 fl (7.4-10.4); Monocytes Absolute Auto 0.4 K/mm3 (0.1-0.6); Monocytes Percent Auto 6.3 % (2.6-8.5); Neutrophils Absolute Auto 4.4 K/mm3 (1.3-6.7); Neutrophils Percent Auto 75.2 % (45.5-73.1); Platelet Count Result 177 k/mm3 (150-375); Red Blood Count 3.82 M/mm3 (4.2-5.4); Red Cell Distribution Width 13.2 % (11.5-14.5); White Blood Count 5.8 K/mm3 (4.5-10.0)
[2023-07-09 05:52] LABS: Alanine Aminotransferase 114 U/L (6-35); Albumin Level 3.5 g/dL (3.5-5.1); Alkaline Phosphatase 134 U/L (38-126); Anion Gap 7 mmol/L (4-12); Aspartate Amino Transferase 32 U/L (14-36); Bilirubin,Total 0.6 mg/dL (0.2-1.3); Blood Urea Nitrogen 8 mg/dL (7-17); Calcium 8.6 mg/dL (8.4-10.2); Carbon Dioxide 24 mmol/L (22-30); Chloride 107 mmol/L (98-107); Estimated CRCL calculation 48 ml/min; Estimated Glomerular Filt Rate > 60; Glucose 136 mg/dL (65-110); Potassium 3.9 mmol/L (3.4-5.0); Sodium 138 mmol/L (137-145)
[2023-07-09 08:45] VITALS: BP 130/50; PULSE 66; RESP 16; TEMP 36.5; O2SAT 99
[2023-07-09] MEDS: CYANOCOBALAMIN 1,000 MCG TABLET 1000 MCG PO (09:14)
[2023-07-09] MEDS: HYDROXYCHLOROQUINE SULFATE 200 MG TABLET PO (09:14)
[2023-07-09] MEDS: PANTOPRAZOLE 40 MG TABLET PO (09:15)
[2023-07-09] MEDS: ENOXAPARIN 40 MG/0.4 ML SYRINGE SUB-Q (09:15)
[2023-07-09] MEDS: ATORVASTATIN 40 MG TABLET PO (09:15)
--- NOTE | 2023-07-09 13:04 | PM.DS ---
DS: Admitting Diagnosis Discharge Date 07/09/23 Admitting Diagnosis Choledocholithiasis Leukocytosis Elevated liver enzymes CVA Dementia Hypothyroidism DS: Discharge Diagnosis Discharge Diagnosis (1) Choledocholithiasis: Code(s): K80.50 - Calculus of bile duct without cholangitis or cholecystitis without obstruction Status: Acute (2) Leukocytosis: Code(s): D72.829 - Elevated white blood cell count, unspecified Status: Acute (3) Elevated liver enzymes: Code(s): R74.8 - Abnormal levels of other serum enzymes Status: Acute (4) CVA (cerebral vascular accident): Code(s): I63.9 - Cerebral infarction, unspecified Status: Acute (5) Dementia: Code(s): F03.90 - Unspecified dementia, unspecified severity, without behavioral disturbance, psychotic disturbance, mood disturbance, and anxiety Status: Acute (6) Hypothyroidism: Code(s): E03.9 - Hypothyroidism, unspecified Status: Acute DS: Summary Hospital Course Reason for hospitalization: Choledocholithiasis Leukocytosis Elevated liver enzymes CVA Dementia Hypothyroidism Hospital Course: 88 year old female with past medical history of CVA (nov 2022) without deficits, rheumatoid arthritis, GI bleed (dec 2022), hypothyroidism, and recurrent falls with surgical history of cholecystectomy presents to hospital from [facility] for altered mental status and lethargy. Labs with mild leukocytosis and elevated LFTs on admission. Abdomen/pelvis CT revealed choledocholithiasis with moderate intrahepatic and extrahepatic biliary duct dilatation. Head CT and chest XR unremarkable. Patient started on IV antibiotics and GI consulted. ERCP with stone removal performed 07/08/[address] Chowdhury. Leukocytosis resolved and LFTs improving. Per GI patient no longer needing antibiotics. Tolerating diet well. Patient discharged back to [facility] in stable condition. She will have a CMP drawn in 1 week to reassess LFTs and follow up with PCP in 1 week. Follow up with GI in 4 weeks. Status at Discharge Functional status at discharge: uses cane/walker Time Spent with Patient Time attestation: Total time spent providing and/or coordinating discharge services: Time spent: Greater than 30 minutes Exam Narrative: AF HR 66 RR 16 SpO2 99 BP 130/50 General: female in no acute respiratory distress who is nontoxic appearing,sitting up in bed with sitter at bedside HEENT: Normocephalic. Atraumatic. Extraocular movement intact. Sclera clear and anicteric. No facial asymmetry. Chest: Lungs are clear to auscultation bilaterally. No wheezes or crackles. CV: Heart was regular rate and rhythm. S1-S2. No murmurs, gallops, or rubs. Abd: Abdomen was soft. Nontender. Nondistended. Positive bowel sounds. Negative murphys sign. No organomegaly or masses. Ext: No clubbing, cyanosis, or edema. 2+ DP pulses bilaterally. Neuro: Patient is alert and oriented x1 (self). Gets confused throughout conversations but is answering questions appropriately- baseline per daughter. Moving all extremities. Cranial nerves 2-12 are intact. Speech is clear. Psych: Normal mood and affect. Patient is pleasant and cooperative. Skin: Warm and dry. No rashes noted. DS: Data Data Completed and Pending Completed studies during hospitalization: ERCP Abdomen/pelvis CT Head CT Chest XR Labs on day of discharge: Labs from last 24 hours 07/09/23 05:06 WBC 5.8 RBC 3.82 L Hgb 11.5 L Hct 35.6 L MCV 93.2 MCH 30.1 MCHC 32.3 RDW 13.2 Plt Count 177 MPV 11.1 H Immature Gran % (Auto) 0.3 Neut % (Auto) 75.2 H Lymph % (Auto) 17.5 L [place] % (Auto) 6.3 Eos % (Auto) 0.2 Baso % (Auto) 0.5 Lymph # (Auto) 1.02 [place] # (Auto) 0.4 Eos # (Auto) 0.0 Baso # (Auto) 0.0 Abs Immat Gran (auto) 0.02 Absolute Neuts (auto) 4.4 Absolute Nucleated RBC 0.000 Nucleated RBC % 0.0 Sodium 138 Potassium 3.9 Chloride 107 Carbon Dioxide 24
--- NOTE | 2023-07-09 15:49 | WPDGIPROGNO ---
Progress Note: A&P Assessment and Plan (1) Choledocholithiasis: Code(s): K80.50 - Calculus of bile duct without cholangitis or cholecystitis without obstruction Status: Acute Assessment and Plan: treated with ercp liver enzymes coming down she can be discharged (2) Elevated liver enzymes: Code(s): R74.8 - Abnormal levels of other serum enzymes Status: Acute Assessment and Plan: from bile duct stones treated with ercp trending down (3) Abdominal pain: Code(s): R10.9 - Unspecified abdominal pain Status: Acute Assessment and Plan: resolved (4) Altered mental status: Code(s): R41.82 - Altered mental status, unspecified Status: Acute (5) Dementia: Code(s): F03.90 - Unspecified dementia, unspecified severity, without behavioral disturbance, psychotic disturbance, mood disturbance, and anxiety Status: Acute Subjective Date/time seen: 07/09/23 15:49 Interval history: she is pleasantly confused ercp yesterday with removal of bile duct stones, she is comfortable Review of Systems Review of Systems: All systems reviewed & are unremarkable except as noted in HPI and below Exam Const: General: comfortable and no acute distress Other: pleasantly confused HENMT: Face/Nose/Sinus: Normal nares present Eyes: General: appearance normal, both eyes and all related structures Neck: Neck: supple Resp: Auscultation: clear to auscultation bilaterally Cardio: Rate: regular rate Rhythm: regular rhythm GI: Inspection: non-distended GI Palp: Yes Soft to palpation, No Tenderness to palpation present (GI) and No Guarding due to palpation present (GI) Auscultation: normal bowel sounds Other: no more pain today Skin: General skin exam: normal color Neuro: Speech: normal speech Motor exam (neuro): 5/5 motor strength present throughout Other: she is awake and alert but gets confused- near baseline per daughter Extrem: General: normal to inspection Psych: Affect: Anxious affect present Objective Data Vital Signs Vital Signs: Vital Signs - 24 hr 07/08/23 16:16 07/08/23 16:26 07/08/23 16:36 Temperature 97.6 F Pulse Rate 59 L 60 56 L Respiratory Rate 25 H 26 H 25 H Blood Pressure 168/62 H 169/64 H 166/74 H Pulse Oximetry 100 99 97 Oxygen Delivery Simple Face Mask Room Air Room Air Oxygen Flow Rate 10 Fraction of Inspired Oxygen 07/08/23 16:46 07/08/23 16:56 07/08/23 17:06 Temperature 97.9 F Pulse Rate 57 L 57 L 55 L Respiratory Rate 21 H 20 20 Blood Pressure 167/76 H 170/63 H 162/67 H Pulse Oximetry 98 96 99 Oxygen Delivery Room Air Room Air Room Air Oxygen Flow Rate Fraction of Inspired Oxygen 07/08/23 17:16 07/08/23 21:31 07/08/23 20:30 Temperature 96.9 F L 97.2 F L Pulse Rate 55 L 59 L 71 Respiratory Rate 19 20 20 Blood Pressure 166/66 H 168/65 H Pulse Oximetry 99 96 90 Oxygen Delivery Room Air Room Air Oxygen Flow Rate Fraction of Inspired Oxygen 21 07/09/23 09:50 07/09/23 08:45 07/09/23 08:00 Temperature 97.7 F Pulse Rate 66 Respiratory Rate 16 Blood Pressure 130/50 L Pulse Oximetry 99 Oxygen Delivery Room Air Room Air Oxygen Flow Rate Fraction of Inspired Oxygen Intake/Output Intake/Output: Intake & Output 07/06/23 07/07/23 07/08/23 07/09/23 23:59 23:59 23:59 23:59 Intake Total 2240 2440 4062.5 240 Output Total 1900 3900 800 Balance 340 2440 162.5 -560 Meds/Results Medications: Active Medications Generic Name Dose Route Start Last Admin Trade Name Freq PRN Reason Stop Dose Admin Atorvastatin Calcium 40 mg 07/07/23 09:00 07/09/23 09:15 Atorvastatin 40 Mg Tablet PO 40 mg DAILY HANG Administration Cyanocobalamin 1,000 mcg 07/07/23 09:00 07/09/23 09:14 Cyanocobalamin 1,000 Mcg Tablet PO 1,000 mcg QAM HANG Administration Enoxaparin Sodium 40 mg 07/07/23 09:00 07/09/23 09:15 Enoxaparin 40 Mg/0
[2023-07-17 13:21] LABS: T3 Free 2.1
== END 2023-07-09 16:17 | DRG 446 ==
LOC: ANHED 23:32 → ANH2MED 07-06 05:21
PROVIDERS: Internal Medicine Gastroenterology; Student in an Organized Health Care Education/Training Program; Admitting Provider Internal Medicine; Emergency Provider Emergency Medicine; Visit Provider Internal Medicine
PROC: 0FC98ZZ Extirpation of Matter from Common Bile Duct, Via Natural or Artificial Opening Endoscopic (ICD-10-PCS; CPT 43260; principal; 2023-07-08 14:30)
DX: K80.50 Calculus of bile duct without cholangitis or cholecystitis without obstruction (principal); D72.829 Elevated white blood cell count, unspecified; Z90.49 Acquired absence of other specified parts of digestive tract; F03.90 Unspecified dementia, unspecified severity, without behavioral disturbance, psychotic disturbance, mood disturbance, and anxiety; E03.9 Hypothyroidism, unspecified; M06.9 Rheumatoid arthritis, unspecified; K44.9 Diaphragmatic hernia without obstruction or gangrene; E66.9 Obesity, unspecified; Z20.822 Contact with and (suspected) exposure to COVID-19; Z68.35 Body mass index [BMI] 35.0-35.9, adult
CPT/HCPCS: 36415; 70450; 71045; 74177; 74329; 80053; 80074; 81001; 83605; 84436; 84443; 84480; 85025; 85610; 85730; 87040; 87086; 87637; 93005; 96365; 96372; 97161; 97165; 99285; A9270; G0378; J0171; J0330; J1100; J1650; J2405; J2543; J2704; J7030; J7120; Q9966; Q9967

== ENCOUNTER 2023-07-23 15:34 | Emergency (ER) | payer MEDICARE, SELFPAY ==
[2023-07-23] VITALS (13 sets, daily range): BP systolic 132–150; BP diastolic 59–102; PULSE 69–81; RESP 15–29; TEMP 37.3; O2SAT 94–98
--- NOTE | ~2023-07-23 | XR_ITS ---
EXAMINATION: XR chest 1V portable DATE: 07/23/2023 16:07 INDICATION: Weakness. TECHNIQUE: A single frontal view of the chest was obtained. COMPARISON: Chest single view 07/05/2023, CT abdomen and pelvis 07/06/2023 FINDINGS: There is no pneumonia, pleural effusion, or pneumothorax. The heart size is normal. There a re surgical clips in the abdomen. IMPRESSION: 1. No acute cardiopulmonary disease. Reviewed, dictated and finalized at location [facility].
--- NOTE | 2023-07-23 15:38 | ECG_ITS ---
[facility] [address] Test Date: 2023-07-23 Pat Name: Shelly Johnston Department: Room: Gender: F Machine Cloth Examiner: : 1935 Requested By: Levy Allred Order Number: [id number] Kayden MD: Amor Prabhakar M.D. Measurements Intervals [place] Rate: 80 P: 32 TN: 151 QRS: 35 QRSD: 104 T: 37 QT: 378 QTc: 439 Interpretive Statements SINUS RHYTHM No previous ECG available for comparison Electronically Signed On 07-24-2023 13:49:29 CDT by Amor Prabhakar M.D.
[2023-07-23 15:53] LABS: Basophils Percent Auto 0.4 % (0.2-1.2); Eosinophils Percent Auto 0.3 % (0-4.4); Hematocrit 39.8 % (37.0-47.0); Hemoglobin 12.9 g/dL (12.0-15.0); Immature Granulocyte Absolute 0.04 K/mm3 (0.00-0.031); Immature Granulocyte Percent A 0.4 % (0-0.5); Lymphocytes Absolute Auto 1.05 K/mm3 (0.9-3.2); Lymphocytes Percent Auto 10.9 % (18.3-44.2); Mean Corpuscular HGB Conc 32.4 g/dl (32-36); Mean Corpuscular Hemoglobin 29.9 pg (26-34); Mean Corpuscular Volume 92.3 fl (80-100); Mean Platelet Volume 10.5 fl (7.4-10.4); Monocytes Absolute Auto 1.3 K/mm3 (0.1-0.6); Monocytes Percent Auto 13.5 % (2.6-8.5); Neutrophils Absolute Auto 7.2 K/mm3 (1.3-6.7); Neutrophils Percent Auto 74.5 % (45.5-73.1); Platelet Count Result 197 k/mm3 (150-375); Red Blood Count 4.31 M/mm3 (4.2-5.4); Red Cell Distribution Width 13.2 % (11.5-14.5); White Blood Count 9.7 K/mm3 (4.5-10.0)
[2023-07-23 16:04] LABS: Alanine Aminotransferase 19 U/L (6-35); Albumin Level 4.3 g/dL (3.5-5.1); Alkaline Phosphatase 96 U/L (38-126); Anion Gap 9 mmol/L (4-12); Aspartate Amino Transferase 25 U/L (14-36); Blood Urea Nitrogen 20 mg/dL (7-17); Calcium 8.6 mg/dL (8.4-10.2); Carbon Dioxide 23 mmol/L (22-30); Chloride 105 mmol/L (98-107); Estimated CRCL calculation 38 ml/min; Estimated Glomerular Filt Rate 59; Glucose 181 mg/dL (65-110); Potassium 3.7 mmol/L (3.4-5.0); Sodium 137 mmol/L (137-145)
[2023-07-23 16:10] LABS: Appearance Urine Turbid (Clear); Bacteria Urine 4+ /hpf; Bilirubin Urine Negative (Negative); Blood Urine 1+ (Negative); Color Urine Dark Yellow (Yellow); Glucose Urine UA Negative (Negative); Ketones Urine Negative (Negative); Leukocyte Esterase Ur 3+ LEU/UL (Negative); Need Manual Microscopic Reviewed; Nitrate Urine Positive (Negative); Protein Urine 2+ mg/dL (Negative); RBC Urine 0-2 /hpf (0-2); Squamous Epithelial Cell Urine Occasional /hpf (Few); WBC Urine >100 /hpf (0-3); pH Urine 5.5 (5.0-9.0)
[2023-07-23 16:16] LABS: Add Urine Microscopic? YES
[2023-07-23] MEDS: SODIUM CHLORIDE 0.9% IV 500 ML 999 ML IV CONT (16:22)
--- NOTE | 2023-07-23 17:11 | ED.WEAKNESS ---
HPI - Weakness General Chief complaint: Weakness Stated complaint: weakness Time Seen by Provider: 07/23/23 16:06 Source: family Mode of arrival: EMS Limitations: dementia History of Present Illness HPI Narrative: The 88-year-old with a history of dementia, status post ERCP on 07/09/23 brought in from memory care unit with a complaints of marked weakness and confusion, daughter who is primary historian states that , she is progressively declining in past 1 wk ,she was having trouble walking and in mentation . She states that she watches her mother on the camera from her home ,while she was at the memory care unit yesterday she thought her mother as doing much better however his afternoon she seemed t o be week .pt presently has no complaints.. Complaint: generalized weakness Exacerbating factors: none Associated symptoms: denies other symptoms Related Data Home Medications Medication Instructions Recorded Confirmed B12 1,000 mcg PO DAILY 07/06/23 07/06/23 Vitamin D3 1,000 units PO DAILY 07/06/23 07/06/23 atorvastatin 40 mg tablet 40 mg PO DAILY 07/06/23 07/06/23 coQ10 (ubiquinol) 200 mg PO BID 07/06/23 07/06/23 hydroxychloroquine 200 mg tablet 200 mg PO BID 07/06/23 07/06/23 pantoprazole 40 mg tablet,delayed 40 mg PO BID 07/06/23 07/06/23 release quetiapine 25 mg PO DAILY 07/06/23 07/06/23 Allergies Allergy/AdvReac Type Severity Reaction Status Date / Time No Known Allergies Allergy Verified 07/06/23 05:48 Review of Systems Review of Systems: All systems reviewed & are unremarkable except as noted in HPI and below Constitutional: Constitutional: Reports no additional constitutional complaints Eyes: Eyes: Reports no additional eye complaints ENT: Reports system reviewed and no additional complaints, except as documented Cardiovascular: Cardiovascular: Reports no additional cardiovascular complaints Respiratory: Respiratory: Reports no additional respiratory complaints Gastrointestinal: Gastrointestinal: Reports no additional gastrointestinal complaints Musculoskeletal: Musculoskeletal: Reports no additional musculoskeletal complaints PMFSH Past Medical History Medical History Abdominal pain Altered mental status Dementia Elevated liver enzymes Leukocytosis Surgical History Surgical History Status post cholecystectomy Family History Family History Other Unknown family medical history Social History Social History Smoking status: Unknown if ever smoked Alcohol intake: unknown Substance use: unknown Spiritual care concerns: No Exam Narrative: GENERAL: Well-appearing, well-nourished, and in no acute distress. HEAD: Normocephalic, atraumatic. EYES: PERRLA and EOMI. ENT: Nares clear, no rhinorrhea or epistaxis. Mucous membranes moist. NECK: Supple. CHEST: Clear to auscultation. No respiratory distress. HEART: Regular rate and rhythm. No murmur heard. Normal peripheral pulses. ABDOMEN: Soft, nontender, nondistended, normal active bowel sounds. EXTREMITIES: Normal range of motion. No edema. SKIN: Warm, dry, no rash. NEURO: No focal deficits. Alert and oriented X2 PSYCH: Normal mood and affect. Course Course Emergency Course: Patient comfortably resting in no discomfort I informed all her lab work, EKG and x-ray findings with the daughter. She feels comfortable taking her back to the memory care unit advised to give antibiotic as prescribed. Continue home medications. Fall precautions advised Vital Signs Vital signs: Vital Signs Temperature 37.3 C 07/23/23 15:32 Pulse Rate 79 07/23/23 15:32 Respiratory Rate 25 H 07/23/23 15:32 Pulse Oximetry 98 07/23/23 15:32 Oxygen Delivery Room Air 07/23/23 15:32 Temperature 37.3 C 07/23/23 15:
--- NOTE | 2023-07-23 17:37 | PC.NURSE ---
report given to Randee at [facility].
== END 2023-07-23 17:51 ==
PROVIDERS: Emergency Provider Family Medicine
DX: N39.0 Urinary tract infection, site not specified (principal); R53.1 Weakness; F03.90 Unspecified dementia, unspecified severity, without behavioral disturbance, psychotic disturbance, mood disturbance, and anxiety; Z90.49 Acquired absence of other specified parts of digestive tract; Z79.899 Other long term (current) drug therapy
CPT/HCPCS: 36415; 71045; 80053; 81001; 85025; 87077; 87086; 87088; 87186; 93005; 96374; 99284; J0696; J7040

== ENCOUNTER 2023-10-03 16:47 | Emergency (ER) | payer MEDICARE, SELFPAY ==
--- NOTE | ~2023-10-03 | XR_ITS ---
EXAMINATION: XR elbow LT min 3V, XR forearm LT 2V DATE: 10/03/2023 17:49 INDICATION: Left elbow and forearm pain post fall TECHNIQUE: 1. Anteroposterior, two oblique and lateral views of the left elbow were obtained. 2. Anteroposterior and lateral views of the left forearm were obtained. COMPARISON: None. FINDINGS: Alignment is normal. Chronic nonunited ulnar styloid avulsion fracture. No acute fractures identified . There are osteochondromas with cortical and medullary continuity projecting distally from the coron oid process, along the proximal ulnar diaphysis and at the distal radial metaphysis which suggests mu ltiple hereditary osteochondromatosis. Mild polyarticular osteoarthritis at the elbow and multiple gian ints at the left wrist and carpus. Small enthesopathic ossicle at the lateral humeral epicondyle at t he origin of the common extensor tendon wad. Mild soft tissue swelling along the dorsum of the forear m. No radiopaque foreign bodies. IMPRESSION: 1. 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 No acute osseous abnormality. 2. 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 2. 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 Reviewed, dictated and finalized at location A. IMPRESSION: 1. 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 No acute osse ous abnormality. 2. 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 2. 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
--- NOTE | ~2023-10-03 | XR_ITS ---
EXAMINATION: XR hip BI 2V w AP pelvis DATE: 10/03/2023 17:49 INDICATION: Weakness and inability to ambulate post fall TECHNIQUE: Anteroposterior view of the pelvis and anteroposterior and frog-leg lateral views of the l eft hip and anteroposterior and frog-leg lateral views of the right hip and were obtained. COMPARISON: CT dated 07/06/2023 FINDINGS: Alignment is normal. No fracture. Chondrocalcinosis and moderate osteoarthritis at the bilateral hips . There is also moderate osteoarthritis at the bilateral sacroiliac joints. Severe lower lumbar facet osteoarthritis. IMPRESSION: 1. No acute osseous abnormality. 2. Moderate bilateral hip and sacroiliac osteoarthritis and severe lower lumbar facet osteoarthritis. Reviewed, dictated and finalized at location A.
[2023-10-03 16:48] VITALS: TEMP 36.7
[2023-10-03 17:05] VITALS: O2SAT 97
--- NOTE | 2023-10-03 17:13 | ED.WEAKNESS ---
HPI - Weakness General Chief complaint: Weakness Stated complaint: weakness Time Seen by Provider: 10/03/23 17:01 Source: patient, EMS and old records reviewed Mode of arrival: EMS Limitations: dementia History of Present Illness HPI Narrative: Patient is an 88-year-old female, with past medical history of dementia - A&OX1 at baseline, CVA, multiple falls, who presents to the ED via EMS with report of weakness. Patient is a resident of [facility]. Per [facility] report, patient has had decreased ambulation since yesterday. Patient unable to provide any information. Screaming out ouch with any touch of her body, particularly to her L arm. She does have an old skin tear to her L forearm. No report of falls today per [place]. Related Data Home Medications Medication Instructions Recorded Confirmed B12 1,000 mcg PO DAILY 07/06/23 07/06/23 Vitamin D3 1,000 units PO DAILY 07/06/23 07/06/23 atorvastatin 40 mg tablet 40 mg PO DAILY 07/06/23 07/06/23 coQ10 (ubiquinol) 200 mg PO BID 07/06/23 07/06/23 hydroxychloroquine 200 mg tablet 200 mg PO BID 07/06/23 07/06/23 pantoprazole 40 mg tablet,delayed 40 mg PO BID 07/06/23 07/06/23 release quetiapine 25 mg PO DAILY 07/06/23 07/06/23 Allergies Allergy/AdvReac Type Severity Reaction Status Date / Time No Known Allergies Allergy Verified 10/03/23 18:53 Review of Systems Review of Systems: All systems reviewed & are unremarkable except as noted in HPI. All systems reviewed & are unremarkable except as noted in HPI and below PMFSH Past Medical History Medical History Abdominal pain Altered mental status Dementia Elevated liver enzymes Leukocytosis Surgical History Surgical History Status post cholecystectomy Family History Family History Other Unknown family medical history Social History Social History Smoking status: Unknown if ever smoked Alcohol intake: unknown Substance use: unknown Spiritual care concerns: No Exam Narrative: GENERAL: Elderly, obese with BMI of 32.3, non-toxic, in no acute distress. HEAD: Normocephalic, atraumatic. RESPIRATORY: Airway patent, respirations nonlabored. Clear to auscultation bilaterally, no rales, rhonchi, wheezing. CARDIOVASCULAR: Regular rate and rhythm. Peripheral pulses intact. ABDOMINAL: Soft, nondistended. Normoactive BS. MUSCULOSKELETAL: Moves all extremities. No gross deformities. TTP diffusely throughout extremities, worst throughout L elbow and proximal forearm. No lower extremity edema. SKIN: Warm, dry, normal color. Old scabbed skin tear to left forearm, no bleeding or drainage. No significant surrounding erythema or warmth. NEURO: A&O X0-1, does not/refusing to follow commands or answer questions. Repeating screaming ouch . Speech clear. No ataxic movements. Extremities move equally. PSYCHIATRIC: Patient borderline agitated, confused. Course Vital Signs Vital signs: Vital Signs Temperature 98.1 F 10/03/23 16:48 Temperature 98.1 F 10/03/23 16:48 Pulse Rate 77 10/03/23 21:00 Respiratory Rate 19 10/03/23 21:00 Blood Pressure 141/90 H 10/03/23 21:00 Pulse Oximetry 97 10/03/23 21:00 Oxygen Delivery Room Air 10/03/23 17:05 MDM - Weakness MDM Narrative Medical decision making narrative: Patient presented [facility] from [facility] with report of weakness, decreased ambulation. Unable to get a clear history from patient, history of dementia, does not answer any questions. Screaming out with any palpation of body. Pain to L arm. Vital signs are stable upon arrival. Patient does not appear to have any focal deficits. Will obtain basic workup to further evaluate. Family/POA now at bedside. They report
--- NOTE | 2023-10-03 17:42 | PC.NURSE ---
patients POA has video set up in patients [facility] apartment that shows patient falling 10/01/2023. POA states she has not been assessed for this yet. the video shows patient falling to the side and landing on left side of body. the video does not show if patient hit head, but POA would like to politely decline getting head CT today although provider offered it. educated POA of benefit of getting head CT and the signs and symptoms of increased ICP and brain bleed. POA would still like to decline stating, theirs nothing we would do for it anyway . POA agreed to get x-rays to identify any bone abnormalities.
[2023-10-03 17:44] LABS: Add Urine Microscopic? YES; Appearance Urine Cloudy (Clear); Bacteria Urine 4+ /hpf; Bilirubin Urine Negative (Negative); Blood Urine Trace (Negative); Budding Yeast Urine Present /hpf; Color Urine Dark Yellow (Yellow); Glucose Urine UA Negative (Negative); Ketones Urine Trace mg/dL (Negative); Leukocyte Esterase Ur 1+ LEU/UL (Negative); Need Manual Microscopic Reviewed; Nitrate Urine Positive (Negative); Non Pathogenic Casts 0-2; Protein Urine 1+ mg/dL (Negative); RBC Urine 0-2 /hpf (0-2); Specific Grav Ur 1.026 (1.001-1.035); Squamous Epithelial Cell Urine None Seen /hpf (Few); WBC Urine 21-50 /hpf (0-3)
[2023-10-03] MEDS: SODIUM CHLORIDE 0.9% IV 1,000 ML 999 ML IV CONT (18:06)
[2023-10-03 18:14] LABS: Basophils Absolute Auto 0.1 K/mm3 (0.0-0.1); Basophils Percent Auto 0.4 % (0.2-1.2); Eosinophils Absolute Auto 0.1 K/mm3 (0-0.3); Eosinophils Percent Auto 0.9 % (0-4.4); Hematocrit 38.7 % (37.0-47.0); Hemoglobin 12.9 g/dL (12.0-15.0); Immature Granulocyte Absolute 0.05 K/mm3 (0.00-0.031); Immature Granulocyte Percent A 0.4 % (0-0.5); Lymphocytes Absolute Auto 1.35 K/mm3 (0.9-3.2); Mean Corpuscular HGB Conc 33.3 g/dl (32-36); Mean Corpuscular Hemoglobin 30.9 pg (26-34); Mean Corpuscular Volume 92.6 fl (80-100); Mean Platelet Volume 10.5 fl (7.4-10.4); Monocytes Absolute Auto 1.2 K/mm3 (0.1-0.6); Monocytes Percent Auto 10.6 % (2.6-8.5); Neutrophils Absolute Auto 8.5 K/mm3 (1.3-6.7); Neutrophils Percent Auto 75.7 % (45.5-73.1); Platelet Count Result 197 k/mm3 (150-375); Red Blood Count 4.18 M/mm3 (4.2-5.4); Red Cell Distribution Width 14.3 % (11.5-14.5); White Blood Count 11.2 K/mm3 (4.5-10.0)
[2023-10-03 18:23] LABS: Alanine Aminotransferase 20 U/L (6-35); Albumin Level 4.2 g/dL (3.5-5.1); Alkaline Phosphatase 90 U/L (38-126); Anion Gap 11 mmol/L (4-12); Aspartate Amino Transferase 21 U/L (14-36); Blood Urea Nitrogen 14 mg/dL (7-17); Calcium 9.1 mg/dL (8.4-10.2); Carbon Dioxide 25 mmol/L (22-30); Chloride 99 mmol/L (98-107); Estimated CRCL calculation 53 ml/min; Estimated Glomerular Filt Rate > 60; Glucose 159 mg/dL (65-110); Sodium 135 mmol/L (137-145)
[2023-10-03 18:50] VITALS: BP 136/89; PULSE 86; RESP 14; O2SAT 97
[2023-10-03 21:00] VITALS: BP 141/90; PULSE 77; RESP 19; O2SAT 97
--- NOTE | 2023-10-03 21:21 | PC.NURSE ---
called [facility] @2112 to give report to Audelia. verbalizes instructions and all questions answered.
== END 2023-10-03 21:15 ==
PROVIDERS: Emergency Provider Physician Assistant
DX: F03.90 Unspecified dementia, unspecified severity, without behavioral disturbance, psychotic disturbance, mood disturbance, and anxiety (principal); N30.00 Acute cystitis without hematuria
CPT/HCPCS: 36415; 73080; 73090; 73521; 80053; 81001; 85025; 87077; 87086; 87088; 87186; 96361; 96365; 99284; J0696; J7030

== ENCOUNTER 2023-12-15 14:01 | Emergency (ER) | payer MEDICARE, SELFPAY ==
[2023-12-15] VITALS (10 sets, daily range): BP systolic 125–138; BP diastolic 76–85; PULSE 71–88; RESP 16–29; TEMP 37.1; O2SAT 95–99
--- NOTE | ~2023-12-15 | CT_ITS ---
EXAMINATION: CT abdomen pelvis w con DATE: 12/15/2023 17:53 INDICATION: Abdominal pain TECHNIQUE: Computed tomography (CT) of the abdomen and pelvis was performed with 100 cc Omnipaque 350 intravenous contrast. Automated exposure control and iterative reconstruction technique were employe d. Exam dose: 1302.17 mGy-cm total exam DLP. COMPARISON: 07/06/2023 Ct abdomen pelvis. FINDINGS: Minimal bibasilar lower lobe atelectasis. Heart size is within normal limits. No pericardial or pleural effusion. Status post cholecystectomy. There is pneumobilia. Liver, spleen, pancreas, adrenal glands are othe rwise unremarkable. Bilateral parapelvic renal cysts. No renal mass lesion is noted otherwise. No urinary tract or calc ulus is detected. The urinary bladder is evacuated. Status post hysterectomy. Small sliding hiatal hernia. There are numerous diverticula of the left colon; no evidence of diverticulitis. No bowel obstructio n or intraperitoneal free air. No evidence of appendicitis. Normal caliber of the abdominal aorta. No intraperitoneal or retroperitoneal or pelvic mass lesion o r lymphadenopathy. No ascites. Small fat containing umbilical hernia. Degenerative changes at the apophyseal joints, with associated minimal grade 1 anterolisthesis at L4- 5. Bilateral hip osteoarthritis. IMPRESSION: Status post cholecystectomy; pneumobilia No evidence of appendicitis Diverticulosis of left colon; no evidence of diverticulitis Bilateral parapelvic renal cysts; no urinary tract calculus or hydroureteronephrosis Reviewed, dictated and finalized at [facility]. Reviewed, dictated and finalized at location A. IMPRESSION: Status post cholecystectomy; pneumobilia No evidence of appendicitis Diverticulosis of left colon; no evidence of diverticulitis Bilateral parapelvic renal cysts; no urinary tract calculus or hydroureteroneph rosis
[2023-12-15 14:09] LABS: Glucose Point of Care 145 mg/dl (65-105)
--- NOTE | 2023-12-15 14:13 | ECG_ITS ---
Test Date: 2023-12-15 14:17:35 Measurements Intervals Loa Rate: 72 P: 44 NE: 152 QRS: 54 QRSD: 92 T: 51 QT: 395 QTc: 435 Interpretive Statements SINUS RHYTHM NONSPECIFIC ST ABNORMALITY ABNORMAL ECG Compared to ECG 07/23/2023 15:41:26 No significant changes Electronically Signed On 12-15-2023 14:23:04 CDT by Jason Huff M.D.
--- NOTE | 2023-12-15 14:59 | ED.GENADULT ---
HPI - General Adult General Chief complaint: Unspecified Stated complaint: ?was diaphoretic/clammy Time Seen by Provider: 12/15/23 14:29 History of Present Illness HPI narrative: Patient is an 88-year-old female with severe dementia who presents ER after having episode where she is diaphoretic and clammy and had an episode of vomiting. No additional history can be provided. Related Data Home Medications Medication Instructions Recorded Confirmed B12 1,000 mcg PO DAILY 07/06/23 07/06/23 Vitamin D3 1,000 units PO DAILY 07/06/23 07/06/23 atorvastatin 40 mg tablet 40 mg PO DAILY 07/06/23 07/06/23 coQ10 (ubiquinol) 200 mg PO BID 07/06/23 07/06/23 hydroxychloroquine 200 mg tablet 200 mg PO BID 07/06/23 07/06/23 pantoprazole 40 mg tablet,delayed 40 mg PO BID 07/06/23 07/06/23 release quetiapine 25 mg PO DAILY 07/06/23 07/06/23 Allergies Allergy/AdvReac Type Severity Reaction Status Date / Time No Known Allergies Allergy Verified 10/03/23 18:53 Review of Systems Review of Systems: ROS unobtainable: Yes unobtainable due to mental status PMFSH Past Medical History Medical History Abdominal pain Altered mental status Dementia Elevated liver enzymes Leukocytosis Surgical History Surgical History Status post cholecystectomy Family History Family History Other Unknown family medical history Social History Social History Smoking status: Unknown if ever smoked Alcohol intake: unknown Substance use: unknown Spiritual care concerns: No Exam Narrative: GENERAL: Well-appearing, well-nourished, and in no acute distress. HEAD: Normocephalic, atraumatic. ENT: Mucous membranes moist. CHEST: Clear to auscultation. No respiratory distress. HEART: Regular rate and rhythm. Normal peripheral pulses. ABDOMEN: Soft, nontender, nondistended. EXTREMITIES: Normal range of motion. No edema. SKIN: Warm, dry, no rash. NEURO: Awake and alert, does not answer orientation questions. Course Course Emergency Course: Patient is resting comfortably. Nontoxic appearing. Talkative family member about lab and imaging results. It is possible patient could have passed a small gallstone through the previous sphincterotomy of the bile duct. Family feels comfortable patient being discharged back to facility. The seems to be a reasonable plan. Recommend follow-up blood work within the week. Vital Signs Vital signs: Vital Signs Pulse Rate 74 12/15/23 14:21 Respiratory Rate 29 H 12/15/23 14:21 Pulse Rate 71 12/15/23 14:45 Respiratory Rate 16 12/15/23 14:45 Blood Pressure 130/85 12/15/23 14:26 Pulse Oximetry 99 12/15/23 15:01 Medical Decision Making Vital Signs Vital Signs: Vital Signs Pulse Rate 74 12/15/23 14:21 Respiratory Rate 29 H 12/15/23 14:21 Pulse Rate 71 12/15/23 14:45 Respiratory Rate 16 12/15/23 14:45 Blood Pressure 130/85 12/15/23 14:26 Pulse Oximetry 99 12/15/23 15:01 Lab Data 12/15/23 15:22 12/15/23 15:22 Labs: Lab Results 12/15/23 12/15/23 12/15/23 Range/Units 14:06 15:22 17:16 WBC 10.2 H (4.5-10.0) K/mm3 RBC 4.37 (4.2-5.4) M/mm3 Hgb 13.4 (12.0-15.0) g/dL Hct 42.3 (37.0-47.0) % MCV 96.8 (80-100) fl MCH 30.7 (26-34) pg MCHC 31.7 L (32-36) g/dl RDW 13.4 (11.5-14.5) % Plt Count 293 (150-375) k/mm3 MPV 10.0 (7.4-10.4) fl Immature Gran % (Auto) 0.3 (0-0.5) % Neut % (Auto) 71.5 (45.5-73.1) % Lymph % (Auto) 16.3 L (18.3-44.2) % Wilkes % (Auto) 8.7 H (2.6-8.5) % Eos % (Auto) 2.5 (0-4.4) % Baso % (Auto) 0.7 (0.2-1.2) % Lymph # (Auto) 1.65 (0.9-3.2) K/mm3 Wilkes # (Auto) 0.9 H (0.1-0.6) K/mm3 Eos # (Auto) 0.3 (0-0.3) K/mm3 Baso # (Auto) 0.1 (0.0-0.1) K/mm3 Abs Immat Gran (auto) 0.03 (0.00-0.031) K/mm3 Absolute Neuts (auto) 7.3 H (1.3-6.7) K/mm3 Absolute Nucleated RBC 0.000 (0.0-0.012) K/mm3 Nucleated RBC % 0.0 (0.0-0.2) % Sodium 141 (137-145) mmol/L Potassium 4.6 (3.4-5.0) mmol/L Chloride 103 (98-107) mmol/L Carbon Dioxide 27 (22-30) mmol/L Anion Gap 11 (4-12) mmol/L BUN 16 (7-17) mg/dL Creatinine 0.60 L (0.7-1.0) mg/dL Estim Creat Clear Calc 63 ml/min Estimated GFR > 60 (59 - ) Glucose 124 H (65-110) mg/dL POC Capillary Glucose 145 H (65-105) mg/dl Calcium 8.7 (8.4-10.2) mg/dL Total Bilirubin 0.8 (0.2-1.3) mg/dL AST 92 H (14-36) U/L ALT 47 H (6-35) U/L Alkaline Phosphatase 209 H (38-126) U/L Total Protein 8.0 (6.3-8.2) g/dL Albumin 4.3 (3.5-5.1) g/dL Lipase 205 (23-300) U/L Urine Color Yellow (Yellow) Urine Appearance Clear (Clear) Urine pH 6.0 (5.0-9.0) Ur Specific [place] 1.021 (1.001-1.035) Urine Protein 1+ H (Negative) mg/dL Urine Glucose (UA) Negative (Negative) mg/dL Urine Ketones Negative (Negative) mg/dL Ur Blood (Man) Negative (Negative) Urine Nitrate Negative (Negative) Urine Bilirubin Negative (Negative) Urine Urobilinogen 1.0 (<2.0) mg/dL Leukocyte Esterase Rfl Negative (Negative) ORQUIDEA/UL Urine RBC 0-2 (0-2) /hpf Urine WBC 0-5 (0-3) /hpf Ur Squamous Epith Cells None seen (Few) /hpf Urine Bacteria None seen /hpf Urine Casts 0-2 Imaging Data Radiologist's impression: ITS Impressions Abdomen/Pelvis CT 12/15/23 18:16 IMPRESSION: Status post cholecystectomy; pneumobilia No evidence of appendicitis Diverticulosis of left colon; no evidence of diverticulitis Bilateral parapelvic renal cysts; no urinary tract calculus or hydroureteronephrosis Discharge Plan Discharge Clinical Impression: Elevated liver enzymes Patient Disposition: Home, Self-Care Condition: Stable Instructions: Transaminitis (ED) Additional Instructions: Return to the emergency department if you develop severe abdominal pain, severe nausea and vomiting to the point where you are unable to keep down fluids, if you develop chest pain or difficulty breathing, blood in your stool, dizziness or fainting, or if you develop any other new or concerning symptoms as these could be signs of more serious medical illness. Try to stay well hydrated. Your liver enzymes are slightly elevated. It is recommended you get a repeat complete metabolic panel this week. Prescriptions: No Action cefadroxil 500 mg capsule 500 mg PO BID Qty: 14 0RF B12 1,000 mcg PO DAILY atorvastatin 40 mg tablet 40 mg PO DAILY Vitamin D3 1,000 units PO DAILY quetiapine 25 mg PO DAILY pantoprazole 40 mg tablet,delayed release (DR/EC) 40 mg PO BID hydroxychloroquine 200 mg tablet 200 mg PO BID coQ10 (ubiquinol) 200 mg PO BID cephalexin 500 mg capsule 500 mg PO Q6H 7 Days Qty: 28 0RF Follow-up/Referrals: Seth,Tyrone Jay DO [Primary Care Provider] - 3 Weeks
[2023-12-15 15:27] LABS: Basophils Absolute Auto 0.1 K/mm3 (0.0-0.1); Basophils Percent Auto 0.7 % (0.2-1.2); Eosinophils Absolute Auto 0.3 K/mm3 (0-0.3); Eosinophils Percent Auto 2.5 % (0-4.4); Hematocrit 42.3 % (37.0-47.0); Hemoglobin 13.4 g/dL (12.0-15.0); Immature Granulocyte Absolute 0.03 K/mm3 (0.00-0.031); Immature Granulocyte Percent A 0.3 % (0-0.5); Lymphocytes Absolute Auto 1.65 K/mm3 (0.9-3.2); Lymphocytes Percent Auto 16.3 % (18.3-44.2); Mean Corpuscular HGB Conc 31.7 g/dl (32-36); Mean Corpuscular Hemoglobin 30.7 pg (26-34); Mean Corpuscular Volume 96.8 fl (80-100); Monocytes Absolute Auto 0.9 K/mm3 (0.1-0.6); Monocytes Percent Auto 8.7 % (2.6-8.5); Neutrophils Absolute Auto 7.3 K/mm3 (1.3-6.7); Neutrophils Percent Auto 71.5 % (45.5-73.1); Platelet Count Result 293 k/mm3 (150-375); Red Blood Count 4.37 M/mm3 (4.2-5.4); Red Cell Distribution Width 13.4 % (11.5-14.5); White Blood Count 10.2 K/mm3 (4.5-10.0)
[2023-12-15 15:38] LABS: Alanine Aminotransferase 47 U/L (6-35); Albumin Level 4.3 g/dL (3.5-5.1); Alkaline Phosphatase 209 U/L (38-126); Anion Gap 11 mmol/L (4-12); Aspartate Amino Transferase 92 U/L (14-36); Bilirubin,Total 0.8 mg/dL (0.2-1.3); Blood Urea Nitrogen 16 mg/dL (7-17); Calcium 8.7 mg/dL (8.4-10.2); Carbon Dioxide 27 mmol/L (22-30); Chloride 103 mmol/L (98-107); Estimated CRCL calculation 63 ml/min; Estimated Glomerular Filt Rate > 60; Glucose 124 mg/dL (65-110); Lipase 205 U/L (23-300); Potassium 4.6 mmol/L (3.4-5.0); Sodium 141 mmol/L (137-145)
[2023-12-15 17:30] LABS: Add Urine Microscopic? YES; Appearance Urine Clear (Clear); Bacteria Urine None Seen /hpf; Bilirubin Urine Negative (Negative); Blood Urine Negative (Negative); Color Urine Yellow (Yellow); Glucose Urine UA Negative (Negative); Ketones Urine Negative (Negative); Leukocyte Esterase Ur Negative LEU/UL (Negative); Nitrate Urine Negative (Negative); Non Pathogenic Casts 0-2; Protein Urine 1+ mg/dL (Negative); RBC Urine 0-2 /hpf (0-2); Specific Grav Ur 1.021 (1.001-1.035); Squamous Epithelial Cell Urine None Seen /hpf (Few); WBC Urine 0-5 /hpf (0-3)
--- NOTE | 2023-12-15 19:32 | PC.NURSE ---
[facility]
== END 2023-12-15 20:25 | disposition home or self-care (01) ==
PROVIDERS: Emergency Provider Emergency Medicine; PCP Internal Medicine
DX: R74.01 Elevation of levels of liver transaminase levels (principal); F03.C0 Unspecified dementia, severe, without behavioral disturbance, psychotic disturbance, mood disturbance, and anxiety
CPT/HCPCS: 36415; 74177; 80053; 81001; 82948; 83690; 85025; 93005; 99284; Q9967